=== PATIENT | female | born 1950 ===

== ENCOUNTER 2022-12-27 10:43 | Inpatient (IN) | payer OTHER ==
[~2022-12-27] VITALS: Ht 152.4 cm; Wt 59.0 kg
[2022-12-28] MEDS ORDERED: ZESTRIL20 MG PO (09:01)
[2022-12-28] MEDS ORDERED: ARICEPT10 MG PO (09:02)
[2022-12-28] MEDS ORDERED: ZYRTEC10 M3 PO (09:02)
[2023-01-02] MEDS ORDERED: VITAMIN D3125 MCG (08:52)
[2023-01-02] MEDS ORDERED: SERTRALINE HCL25 MG (08:52)
[2023-01-02] MEDS ORDERED: APETIGEN L790 MG/15 (08:52)
[2023-01-04] MEDS ORDERED: PAIN RELIEVER500 M2 PO (11:15)
[2023-01-04] MEDS ORDERED: HYOSCYAMINE0.125 M1 SL (11:15)
[2023-01-04] MEDS ORDERED: INTESTINEX680 M1 PO (11:16)
[2023-01-04] MEDS ORDERED: POLY119PG PO (11:18)
== END 2023-01-04 14:53 | disposition home or self-care (01) | DRG 331 ==
LOC: SURH 01-01 09:00 → O/R 01-01 10:10 → SURH 01-01 11:00 → SURG 01-01 18:27
PROVIDERS: ADMIT Surgery; ATTEND Surgery
PROC: 0DTP4ZZ Resection of Rectum, Percutaneous Endoscopic Approach (ICD-10-PCS; 2023-01-01)
PROC: 0DNW4ZZ Release Peritoneum, Percutaneous Endoscopic Approach (ICD-10-PCS; 2023-01-01)
PROC: 0DJD8ZZ Inspection of Lower Intestinal Tract, Via Natural or Artificial Opening Endoscopic (ICD-10-PCS; 2023-01-01)
PROC: 0DBE4ZZ Excision of Large Intestine, Percutaneous Endoscopic Approach (ICD-10-PCS; principal; 2023-01-01 09:00)
DX: Z43.3 Encounter for attention to colostomy (principal); G30.9 Alzheimer's disease, unspecified; F02.80 Dementia in other diseases classified elsewhere, unspecified severity, without behavioral disturbance, psychotic disturbance, mood disturbance, and anxiety; Z20.822 Contact with and (suspected) exposure to COVID-19